=== PATIENT | female | born 1970 | race Caucasian/White ===

== ENCOUNTER 2024-12-21 15:15 | Observation (INO) | payer MEDICAID, SELFPAY ==
--- NOTE | 2024-12-20 06:32 | EKG_ITS ---
[facility] Test Date: 2024-12-20 Pat Name: JACQUE BALLESTEROS Department: Room: - Gender: Female Invas Tech: ALBIN : 1970 Requested By: Leonel Mayfield Order Number: [id number] Reading MD: Leonel Mayfield Measurements Intervals [place] Rate: 74 P: 41 RI: 142 QRS: 87 QRSD: 84 T: 32 QT: 388 QTc: 433 Interpretive Statements SINUS RHYTHM LOW QRS VOLTAGE IN PRECORDIAL LEADS [QRS DEFLECTION < 1.0 mV IN CHEST LEADS] POSSIBLE ANTERIOR MYOCARDIAL INFARCTION , PROBABLY OLD [30 ms Q WAVE IN V3/V4, OR R < 0.2 mV IN V4] No previous ECG available for comparison /[id number]/[id number]
[2024-12-20 09:30] VITALS: BMI 38.1
[2024-12-20 11:26] LABS: Basophils # (Auto) 0.1 Thou/mm3 (0.0-0.2); Basophils % (Auto) 1 % (0-2.5); Eosinophils # (Auto) 0.2 Thou/mm3 (0.0-0.5); Eosinophils % (Auto) 2 % (0-10); Hematocrit 41.3 % (36.0-46.0); Hemoglobin 14.3 g/dL (12.0-16.0); Immature Granulocytes % (Auto) 0 % (0-0); Immature Granulocytes Auto 0.02 Thou/mm3 (0.00-0.00); Lymphocytes # (Auto) 1.6 Thou/mm3 (1.0-4.8); Lymphocytes % (Auto) 19 % (10-50); Mean Corpuscular HGB Conc 34.6 g/dl (31.0-37.0); Mean Corpuscular Hemoglobin 31.9 pg (25.0-35.0); Mean Corpuscular Volume 92 fL (80-100); Monocytes # (Auto) 0.6 Thou/mm3 (0.0-0.8); Monocytes % (Auto) 6 % (0-12); Neutrophils # (Auto) 6.3 Thou/mm3 (1.8-7.7); Neutrophils % (Auto) 72 % (37-80); Nucleated Red Blood Cell % 0 /100 WBC (0); Platelet Count 179 Thou/mm3 (140-440); RDW Standard Deviation 43.5 fL (36.4-46.3); Red Blood Count 4.48 Miln/mm3 (4.00-5.20); White Blood Count 8.8 Thou/mm3 (3.6-11.0)
[2024-12-20 11:33] LABS: Partial Thromboplastin Time 24.8 Seconds (22.0-36.0); Prothrombin Time 11.1 Seconds (9.0-12.2)
[2024-12-20 11:36] LABS: Alanine Aminotransferase 13 U/L (10-49); Albumin, Serum 4.1 gm/dL (3.5-5.0); Albumin/Globulin Ratio 1.9 (1.2-2.2); Alkaline Phosphatase 80 U/L (46-116); Anion Gap 9 (7-16); Aspartate Amino Transferase 17 U/L (0-34); BUN/Creatinine Ratio 27 Ratio (12-20); Bilirubin,Total 0.8 mg/dL (0.3-1.2); Blood Urea Nitrogen 16 mg/dL (9-23); Calcium 8.7 mg/dL (8.3-10.6); Calcium (Corrected) 8.7 mg/dL (8.5-10.1); Carbon Dioxide 27.1 mMol/L (20.0-31.0); Chloride 109 mMol/L (98-107); Creatinine (Component) 0.6 mg/dL (0.6-1.3); Estimated Creatinine Clearance 120.9 mL/min (>60); Globulin 2.2 gm/dL (2.3-3.5); Glucose 93 mg/dL (74-106); Osmolality,Calculated 289 (275-295); Potassium 4.2 mMol/L (3.4-5.1); Sodium 145 mMol/L (136-145); Total Protein 6.3 gm/dL (5.7-8.2); eGFR > 60 See Note
[2024-12-21] VITALS (12 sets, daily range): BP systolic 142–179; BP diastolic 74–90; PULSE 72–92; RESP 12–18; TEMP 36.4–36.8; O2SAT 93–100; BMI 38.3
--- NOTE | 2024-12-21 10:10 | CHAP ---
Visited briefly with patient giving encouragement and prayer.
--- NOTE | 2024-12-21 13:12 | XR_ITS ---
Examination: Knee, left , 3 views Technique: Knee AP, lateral, oblique 3 views Date and time of exam: December 21, 2024 1525 hours INDICATIONS: Postop knee replacement FINDINGS: Prominent osteopenia Total left knee arthroplasty. Satisfactory alignment IMPRESSION: Total left knee arthroplasty with satisfactory alignment
--- NOTE | 2024-12-21 13:12 | PD.SUROPNT ---
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 Femur size 7 narrow Tibial baseplate size E Polyethylene size 10 mm medial stabilizer Patella size 26 mm Findings Patient has significant valgus deformity of the knee joint. There are significant osteophytes present. The joint space on the lateral compartment was narrowed along with patellofemoral compartment. The medial collateral ligament was stretched. Procedure Description The patient was given a [spinal] anesthesia. Once satisfactory anesthesia was achieved a tourniquet was placed on left upper thigh. Intravenous antibiotics was given at the time of anesthesia. The patient was thoroughly prepped and draped. After using Esmarch the tourniquet pressure was raised to 350 mmHg. A skin incision was made 2 inches proximal to the upper pole of patella going as far down as up to the medial aspect of the tibial tuberosity. The skin was raised as a flap on the site. The bleeding vessels were electrocoagulated as and when encountered. The quadriceps tendon, medial border of the patella and the patellar tendon along the medial aspect of the tibial tuberosity was incised and reflected. The patellar tendon was reflected as much as needed to nguyen the patella. The soft tissue from the upper medial border of the tibia was reflected to correct her genu varum deformity. The knee joint was flexed. The anterior cruciate ligament, medial and lateral meniscus were excised. Next para drill hole was made to the inferior surface of the femur. Following that a swab was placed. A 6?? of abduction was already put into it. Following that a cutting block for the inferior cut of the femur was placed and nicely secured with the pins. The swat was removed. The inferior cut of the femur was made and after that the cutting block was removed. Following that a sizer was placed. A decision was made to use size [7 ] femur implant. 2 drill holes each in 6 ?? of external rotation were made. The sizer was removed. Size [7] cutting block was placed. Following that anterior, posterior, anterior chamfer and posterior chamfer cuts were made. The cutting block was removed. The knee joint was extended and a 10 mm trial plastic was removed and the intended level of the tibial cut was marked. The knee joint was flexed. With the help of double-pronged the tibia was displaced anteriorly. An extramedullary jig for the cutting block placement of the tibia was placed. The mechanical axis of the zig was parallel to the mechanical axis of the tibia. Following that the tibial cutting block was placed at the desired level and was secured nicely with the help of pins. Following that the tibial cut was made. In this case was posterior cruciate ligament was saved. The cutting block was removed. The spacer was placed and a decision was made to use size [10] polyethylene. The sizing of the tibial baseplate was done and the decision was made to use size [E] tibial baseplate. Following that size [7] trial femur implant was placed in lateralized position and size [E] tibial tibial baseplate along with size [10] medial stabilizer plastic was placed in knee joint was flexed and extended quite a few times and tibial baseplate was allowed to sit wherever it wanted to. The markings were made for the tibial baseplate. 2 drill holes were made for the inferior surface of the femur trial implant. The trial implant was removed and tibial baseplate was placed again with the help of pins. The collar was placed and superior hole was drilled. Following that a fin cut was made. The patella was reamed with [26] mm diameter reamer. [12] mm thickness was left. A collar was placed and 3 drill holes were made. All the trial implant was placed and patellar tracking was checked and found to be good. Lateral release was done at this point. The wound was irrigated with antibiotic solution every 4-5 minutes. Now the power lavage antibiotic solution was used. The knee joint was flexed. The bone were made dry. The cement was mixed. With the help of cement the tibial baseplate was mounted. The excess cement was removed. The femur implant was placed and trial plastic was placed and knee joint was extended. Patella was also mounted with the help of cementing. Excess cement was removed. Osteophytes from the patella was removed at this time. Once the cement was set the tourniquet pressure was released. The bleeding vessels were electrocoagulated. The trial plastic was removed and 10 mm medial stabilizer ultra high molecular weight polyethylene was placed. Closure The quadriceps was closed with the help of 1 strata fix in continuous fashion. The medial collateral ligament was also repaired nicely and it was quite stable. The subcu tissue and fascial layer was closed with 2 oh STRATAFIX Vicryl. The skin was closed with subcuticular. To cleaning the wound Prineo tape was applied. The wound was cleaned with hydrogen proximal solution and a sterile dressing was applied. Patient tolerated procedure very well. Estimated blood loss [25] mL. Prognosis in this case is good. This was taken to the recovery room in good condition. Anesthesia GETA and other Pathology / specimen None Estimated Blood Loss 25 Surgeon Leonel Crawley MD Surgical Staff Operation Date: 12/21/24 10:45 Case Staff Anesthesiologist: Luis Nicole RNcompressor operator adjuster: Berenice Castano
[2024-12-21] MEDS: fentaNYL CIT INJ 50 mCg/ML AMP 2ML IVP (13:58)
--- NOTE | 2024-12-21 14:00 | SUR.PHASEI ---
1340: Pt received in [facility] via hospital bed with trapeze. Report from Be TAM and Dr. Nicole. Pt obtunded. Resp even, unlabored. BP elevated. Anesthesia aware. Pt has medication ordered for elevated BP. Recommended to monitor for changes. Other VS stable. Dressing to left knee dry, clean, intact. Bilateral pedal pulses strong, regular. No c/o pain. 1358: Pt awake with c/o pain to left knee. Rates pain level 10/10. VS stable. Resp even, unlabored. Pain medication given per order. 1408: Pt resting quietly with no further complaints. VS stable. Resp even, unlabored.
--- NOTE | 2024-12-21 15:15 | SUR.PHASEII ---
1430: Pt resting with no further c/o pain. Resp even, unlabored. VS stable. Dressing to left knee remains dry, clean, intact. Bilateral pedal pulses strong, regular. 1435: Pt awake with needing to void. Purwick external catherer placed. No immediate return of urine. 1440: Pt stated she wasn't sure if she needed to void. Will monitor.
--- NOTE | 2024-12-21 15:49 | SUR.PHASEII ---
1530: Radiology here to take ordered xrays of left knee. Pt tolerated procedure with no complaints. 1542: Received room assignment. Report to 3rd floor. Pt transferred to Rm 365 in stable condition.
--- NOTE | 2024-12-21 16:03 | ESHP_ITS ---
RE: JACQUE BALLESTEROS : 1970 DATE OF ADMISSION: 12/21/2024 HISTORY OF PRESENT ILLNESS: The patient came to my office earlier for detailed preop history and physical examination. The patient has pain in her left knee joint for a very long period of time. However, the last 1 year has been extremely painful. The patient graded intensity of pain to be 8-9/10. Unable to sleep. The patient is unable to walk more than 200 yards so before she has to stop walking. The patient also has significant left knee deformity. Quality of life and activities of daily living are affected. The patient wants something to be done about it. PAST MEDICAL HISTORY: The patient denies history of diabetes mellitus, high blood pressure, asthma, seizures, chest pain, myocardial infarction, or bleeding disorder. PAST SURGICAL HISTORY: , ovariectomy, and weight loss surgery. DRUG HISTORY: The patient takes; 1. Hydrocodone. 2. Pregabalin. 3. Vitamin D2. 4. Ozempic. ALLERGIES: NIL KNOWN. FAMILY HISTORY AND SOCIAL HISTORY: The patient denies drinking. The patient admits he smokes less tobacco. The patient is disabled. PHYSICAL EXAMINATION: GENERAL: Rather normal built lady. VITAL SIGNS: Pulse is 78 per minute, blood pressure 124/76. NECK: Soft, supple. No masses felt. Trachea is centrally placed. CARDIOVASCULAR SYSTEM: First and second heart sounds are normal. No murmur heard. LUNGS: Bilateral vesicular breath sounds. CHEST: Clear. ABDOMEN: Soft. No masses felt. Bowel sounds present. BREASTS: Not indicated in this case. RECTAL: The patient was advised to see her family physician for rectal examination. EXTREMITIES: Left knee examination revealed significant genu valgus deformity. Active range of motion is 0 to 115 degrees of flexion. Crepitus is present. The patient walks with a limp. Neurovascularly is intact. DIAGNOSTIC DATA: X-ray of the left knee joint revealed significant osteoarthritic changes with significantly reduced lateral joint space and patellofemoral space. ASSESSMENT AND PLAN: Since the patient is symptomatic, therefore, left total knee replacement was discussed and advised. Risks with anesthesia were explained and that includes, but not limited to reaction to anesthetic agents, cardiac arrest or rarely it might be fatal. Risks with operation includes infection and if that happens, the patient may need further surgical procedure. Sometimes rare complication happens that includes possible damage to nerve and vessels may take place. If that happens, the patient may need further surgical procedure. No guarantees given regarding the outcome of the procedure and/or relief of symptoms. Accordingly, the patient's surgery is booked for 12/21/2024. The patient is cleared for surgical procedure as well. All questions were answered. DT: 14:30:24 TT: 16:02:00 Ref: [id number] - TID: [id number]
[2024-12-21] MEDS: SODIUM CHLORIDE 0.9% 1000 ML 1,000 ML 60 ML IV (16:46)
[2024-12-21] MEDS: ceFAZolin/D5W 1 GM IVPB 1 GM/50 ML BAG IV (16:59)
[2024-12-21] MEDS: MORPHINE SULF INJ 10 MG/ML VIAL 4 MG IVP (21:20)
[2024-12-22] VITALS (7 sets, daily range): BP systolic 115–156; BP diastolic 61–80; PULSE 76–96; RESP 18; TEMP 36.1–37.1; O2SAT 96–98; BMI 12.0
[2024-12-22] MEDS: ceFAZolin/D5W 1 GM IVPB 1 GM/50 ML BAG IV (01:18)
[2024-12-22] MEDS: MORPHINE SULF INJ 10 MG/ML VIAL 4 MG IVP ×6 (01:25→22:47)
[2024-12-22 05:05] LABS: Basophils % (Auto) 0 % (0-2.5); Eosinophils % (Auto) 0 % (0-10); Hematocrit 36.7 % (36.0-46.0); Hemoglobin 12.7 g/dL (12.0-16.0); Immature Granulocytes % (Auto) 0 % (0-0); Immature Granulocytes Auto 0.05 Thou/mm3 (0.00-0.00); Lymphocytes % (Auto) 8 % (10-50); Mean Corpuscular HGB Conc 34.6 g/dl (31.0-37.0); Mean Corpuscular Hemoglobin 31.4 pg (25.0-35.0); Mean Corpuscular Volume 91 fL (80-100); Monocytes % (Auto) 8 % (0-12); Neutrophils # (Auto) 10.4 Thou/mm3 (1.8-7.7); Neutrophils % (Auto) 84 % (37-80); Nucleated Red Blood Cell % 0 /100 WBC (0); Platelet Count 150 Thou/mm3 (140-440); RDW Standard Deviation 41.7 fL (36.4-46.3); Red Blood Count 4.05 Miln/mm3 (4.00-5.20); White Blood Count 12.4 Thou/mm3 (3.6-11.0)
--- NOTE | 2024-12-22 09:21 | PC.SS ---
Follow up note: Pt had surgery with Dr. Harrison for Left TKA. Pt will work with PT. Pt will return home upon dc.
--- NOTE | 2024-12-22 10:56 | PC.NURSE ---
PT here to evaluate pt.
--- NOTE | 2024-12-22 11:39 | PC.SS ---
SS called and spoke to Barbara ([phone]) from [facility] (while in patient's room) and explained Cecilia from PT is recommending a walker and [facility]. Barbara explained they provide pt with prescription to purchase walker on December 14, 2024 and she will follow up with Dr. Harrison on Wednesday at 9:30am at [address] [place] [id number]. Pt states she has walker she can borrow. SS has provided pt with [facility] with appointment time, date, and phone#.
--- NOTE | 2024-12-22 11:57 | PC.SS ---
SS met with patient regarding her d/c plan. Pt is alert/oriented. Pt was admitted for LT TKA [id number]. Pt confirmed demographic and contact information is correct on facesheet. Pt resides with dtr. Prior to being hospitalized, pt ambulated independently without assistance or DME. Pt was also ok with all ADLs, prior to hospitalization. Pt named her dtr, Yesenia Abdon medical decision maker if she is unable. Patient?s choice is to return home upon d/c. Pt is aware she was provided with prescription to purchase walker prior to being hospitalized. Pt is aware to follow up with Dr. Harrison's office for appointment. D/C plan: Return home Next of Kin: Birdie Reina, daughter, phone# [phone] PCP: [facility] Address: Correct on facesheet
[2024-12-22] MEDS: SODIUM CHLORIDE 0.9% 1000 ML 1,000 ML 60 ML IV (18:02)
[2024-12-22] MEDS: ACETAMINOPHEN 325 MG TABLET 650 MG PO (21:16)
[2024-12-22] MEDS: KETOROLAC INJ 30 MG/ML VIAL 15 MG IVP (22:05)
[2024-12-23] MEDS: MORPHINE SULF INJ 10 MG/ML VIAL 4 MG IVP ×4 (02:47→16:24)
[2024-12-23 04:00] VITALS: BP 141/70; PULSE 72; RESP 16; TEMP 36.3; O2SAT 96
[2024-12-23] MEDS: KETOROLAC INJ 30 MG/ML VIAL 15 MG IVP ×2 (05:06→13:14)
[2024-12-23 08:00] VITALS: BP 121/74; PULSE 73; RESP 17; TEMP 36.8; O2SAT 96
[2024-12-23 12:00] VITALS: BP 155/77; PULSE 80; RESP 18; TEMP 36.8; O2SAT 97
[2024-12-23 15:52] VITALS: BP 140/66; PULSE 76; RESP 17; TEMP 36.6; O2SAT 96
--- NOTE | 2024-12-26 13:36 | PD.ANESPROG ---
Documentation for date of: 12/26/24 POST ANESTHESIA NOTE: Patient had GETA and L femoral block for L TKA on 12/21/24. I just called and spoke with her on the phone and she denied any problems from anesthesia and reported I am good, everything is good. Luis Nicole MD Anesthesia Progress Note Progress Note Most recent Vital Signs: Last Vital Signs Temp 97.9 F 12/23/24 15:52 Pulse 76 12/23/24 15:52 Resp 17 12/23/24 15:52 BP 140/66 H 12/23/24 15:52 Pulse Ox 96 12/23/24 15:52 O2 Del Method Room Air 12/23/24 15:52 O2 Flow Rate 2 12/22/24 16:00
== END 2024-12-23 19:11 | disposition home or self-care (01) ==
LOC: S3NX 12-23 17:28
PROVIDERS: Anesthesiology; Admitting Provider Orthopaedic Surgery; PCP Internal Medicine; Referring Provider Orthopaedic Surgery; Visit Provider Orthopaedic Surgery
PROC: (CPT 27447; principal; 2024-12-21 10:30)
DX: M17.12 Unilateral primary osteoarthritis, left knee (principal); Z01.810 Encounter for preprocedural cardiovascular examination; M21.062 Valgus deformity, not elsewhere classified, left knee; M25.762 Osteophyte, left knee
CPT/HCPCS: 27447; C1776; 36415; 73562; 80048; 80053; 85025; 85610; 85730; 86850; 86900; 86901; 86923; 87081; 93005; 96361; 96365; 96375; 96376; 97163; A4217; G0378; J0131; J0689; J0690; J1100; J1171; J1580; J1885; J2250; J2270; J2371; J2405; J2704; J2795; J3010; J3490; J7030; A9270